=== PATIENT | male | born 1955 | race Caucasian/White ===

== ENCOUNTER 2024-06-24 10:09 | Day surgery (SDC) | payer MEDICARE ==
[2024-06-24] MEDS: Lactated Ringers 1,000 ML IV SCH (10:30)
[2024-06-24] MEDS ORDERED: fentaNYL 50 MCG/ML SDV ONE (10:45)
[2024-06-24] MEDS ORDERED: Midazolam 1 MG/ML 2 ML SDV ONE (10:45)
[2024-06-24] MEDS ORDERED: Ketamine 200 MG/20 ML MDV ONE (10:45)
[2024-06-24] MEDS ORDERED: Propofol 200 MG/20 ML SDV ONE ×2 (10:45)
== END 2024-06-24 12:10 | disposition home or self-care (01) ==
LOC: CC.SDS 10:09
PROVIDERS: ATTEND Family Medicine
DX: Z12.11 Encounter for screening for malignant neoplasm of colon (principal); R19.5 Other fecal abnormalities; D12.3 Benign neoplasm of transverse colon; K57.30 Diverticulosis of large intestine without perforation or abscess without bleeding; I10 Essential (primary) hypertension; E78.5 Hyperlipidemia, unspecified; Z79.899 Other long term (current) drug therapy
CPT/HCPCS: 00811; 45380; 88305; J2250; J2704; J3010; J3490; J7120